=== PATIENT | male | born 1945 | race Caucasian/White ===

== ENCOUNTER → 2017-02-03 | Outpatient (CLI) | payer MEDICARE, BC ==
--- NOTE | 2017-02-03 21:52 | PN ---
A 72-year-old gentleman who has been followed in the sleep center for treatment of obstructive sleep apnea-hypopnea syndrome. Patient continued to use his CPAP equipment every night for the whole night without problems. His likes his mask. He likes his machine. He brought his CPAP unit with him and I checked CPAP usage. He is 100% of the time more than 4 hours. Average usage is 8.18 hours. Leak is only 2%. Apnea-hypopnea index reading is only 2.0. [place] Sleepiness Scale today is 5. MEDICATIONS: 1. Amlodipine. 2. Atorvastatin. 3. Furosemide. 4. Meloxicam. 5. Metformin. 6. Metoprolol. 7. Pioglitazone. 8. A baby aspirin. PHYSICAL EXAMINATION: GENERAL: Patient in no distress. VITAL SIGNS: BP 163/72, HR 52, RR 16. Height 5 feet 9 inches. Weight 283. BMI 41.7. Temp 98.1. Weight is 4 pounds more than during the visit 1 year ago. HEENT: PERRLA, EOMI, Evaluation of the oropharynx showed tongue protrudes midline. Moderate to extremely low position of soft palate. NECK: Supple. No JVD, Thyroid is not palpable. LUNGS: Clear to percussion and to auscultation. Good air exchange. No wheezing or rhonchi. HEART: S1, S2 regular. No murmurs, gallops, or rubs. ABDOMEN: Obese, soft and nontender. Bowel sounds are present. No organomegaly appreciated. BELL CLERK: Awake, alert, and oriented x3. Cranial nerves 2 to 7 intact. There is no fasciculation or atrophy noted. No focal deficits observed. IMPRESSION: 1. Obstructive sleep apnea-hypopnea syndrome on full control with continuous positive airway pressure at 13 cm of water. Patient demonstrated 100% compliance, normal respiration with the machine. 2. Obesity. 3. Hypertension. 4. Diabetes mellitus. 5. Glaucoma. 6. Hyperlipidemia. 7. History of colon polyps. PLAN: 1. Continue treatment with CPAP every night for the whole night. 2. Losing weight. 3. Sleep hygiene with regular time in bed for at least 8 hours. 4. Precautions related to driving. No driving if feeling any sleepiness. 5. Prescription for all necessary CPAP supplies, including mask, tube, filters. Thank you very much for allowing me to participate in the management of your patient. Sincerely, Erick Martini MD, PhD, FAASM Diplomat of [place] Board of Sleep Medicine, Sleep Medicine Board by [place] Board [employer] Medical Specialities [place] Board of Internal Medicine Stock Chaser of [facility] [place]
== END | disposition home or self-care (01) ==
LOC: SLEEP 16:22
PROVIDERS: ATTEND Internal Medicine
DX: G47.33 Obstructive sleep apnea (adult) (pediatric) (principal); I10 Essential (primary) hypertension; E66.9 Obesity, unspecified; E11.9 Type 2 diabetes mellitus without complications; E78.5 Hyperlipidemia, unspecified; Z79.82 Long term (current) use of aspirin; Z79.84 Long term (current) use of oral hypoglycemic drugs; Z68.41 Body mass index [BMI] 40.0-44.9, adult; Z99.89 Dependence on other enabling machines and devices; Z86.010 Personal history of colon polyps; Z79.899 Other long term (current) drug therapy

== ENCOUNTER → 2018-02-02 | Outpatient (CLI) | payer MEDICARE, BC ==
--- NOTE | 2018-02-02 12:22 | PN ---
PROGRESS NOTE DATE OF SERVICE: 02/02/2018 A 73-year-old gentleman who has been followed in the Sleep Center for treatment of obstructive sleep apnea-hypopnea syndrome. Patient continued to use his CPAP equipment every night for the whole night without any problems. No snoring with the machine. He sleeps according to him at least 6 hours. Sleeps well. [place] Sleepiness Scale today is 4. I checked his CPAP unit. Usage is 100% of the time for more than 4 hours. Average usage is 8.36 hours per night. Leak is before up to 4% from the mask. Apnea- hypopnea index is only 0.8 for the last month, which is perfect. MEDICATIONS: Amlodipine, Atorvastatin, furosemide, metformin, metoprolol., baby aspirin, and also hydralazine. PHYSICAL EXAM: Patient in no distress. BP 152/64, HR 50, RR 16, height 5, 9, weight 281, which is 2 pounds less than during previous visit, BMI 41.4, temp 97.0. Oxygen saturation on room air 96%. OROPHARYNX: Low position of soft palate. HEART: S1, S2. Regular, no gallops, no rubs. ABDOMEN: Obese. EXTREMITIES: 1+ bilateral edema. Neck Supple, no JVD. Thyroid is not palpable. LUNGS Clear to percussion and to auscultation. Good air exchange. No wheezing or rhonchi. PHLEBOTOMIST MEDICAL LAB ASSISTANT Awake, alert, and oriented X3. Cranial nerves 2 to 7 intact. There is no fasciculation or atrophy. noted. No focal deficits observed. IMPRESSION: 1. Obstructive sleep apnea-hypopnea syndrome on full control with CPAP. Patient demonstrated 100% compliance with treatment, benefitting from treatment. CPAP pressure is 13 cm of water. 2. Obesity. 3. Hypertension. 4. Diabetes mellitus. 5. Hyperlipidemia. 6. Glaucoma. 7. History of colon polyps. PLAN: 1. Continue treatment with CPAP every night. 2. Losing weight. 3. Sleep hygiene with regular time in bed for at least 8 hours. 4. No driving if feeling sleepiness. 5. Prescription for all necessary CPAP supplies including mask, tube, filters. Thank you very much for allowing me to participate in the management of your patient. Sincerely, Erick Martini MD, PhD, FAASM Diplomat of [place] Board of Medical Specialties [place] Board of Internal Medicine Liner Helper of [facility] [place] JANICE / VINAY: [id number] / ADAM
== END | disposition home or self-care (01) ==
LOC: SLEEP 10:28
PROVIDERS: ATTEND Internal Medicine
DX: G47.33 Obstructive sleep apnea (adult) (pediatric) (principal); H40.9 Unspecified glaucoma; E78.5 Hyperlipidemia, unspecified; I10 Essential (primary) hypertension; E66.9 Obesity, unspecified; E11.9 Type 2 diabetes mellitus without complications; Z79.82 Long term (current) use of aspirin; Z79.84 Long term (current) use of oral hypoglycemic drugs; Z99.89 Dependence on other enabling machines and devices; Z79.899 Other long term (current) drug therapy; Z86.010 Personal history of colon polyps; Z68.41 Body mass index [BMI] 40.0-44.9, adult

== ENCOUNTER → 2019-06-07 | Outpatient (CLI) | payer MEDICARE, BC ==
--- NOTE | 2019-06-07 14:18 | SFUN ---
SLEEP CENTER FOLLOW UP NOTE DATE OF SERVICE: 06/07/2019 A 74-year-old gentleman who has been followed in the Sleep Center for treatment of obstructive sleep apnea-hypopnea syndrome. Patient successfully continued to use his CPAP equipment every night without significant problems related to mask fitting, pressure or humidification, is using full-face mask. [place] Sleepiness Scale today is 4. . I checked CPAP unit. Usage is 30/30 nights more than 4 hours. Leak is only 2% which is observed in the normal range. Apnea-hypopnea index only 1.0/1 hour, which is perfect. Periodic breathing only % which is normal range. Pressure in the machine is 13 cm of water. Patient receiving all his CPAP supplies in time. MEDICATIONS: Troglitazone, metoprolol, amlodipine, atorvastatin, furosemide 40 mg once a day, Hydralazine, Neurontin, baby aspirin, timolol eye drops. PHYSICAL EXAM: Patient in no distress. BP 167/73, HR 42, RR 16, height 5, 8, weight 280, which is 1 pound less than 1 year ago, body mass index 42.5, temperature 97.4, oxygen saturation at room air 97%. OROPHARYNX: Extremely low position of soft palate, Mallampati 4. EXTREMITIES: 1+ ankle edema. Neck Supple, no JVD. Thyroid is not palpable. LUNGS Clear to percussion and to auscultation. Good air exchange. No wheezing or rhonchi. HEART S1, S2 regular. No murmurs, gallops, or rubs. ABDOMEN Soft and nontender. Bowel sounds are present. No organomegaly appreciated. SAW STRAIGHTENER Awake, alert, and oriented X3. Cranial nerves 2 to 7 intact. There is no fasciculation or atrophy. noted. No focal deficits observed. IMPRESSION: 1. Obstructive sleep apnea-hypopnea syndrome. Patient demonstrated great compliance with treatment, benefitting from treatment. 2. Obesity. 3. Hypertension. 4. Diabetes mellitus. 5. Hyperlipidemia. 6. Glaucoma. 7. History of colon polyps. 8. Back problems. PLAN: 1. Patient will continue to use CPAP equipment every night for the whole night. 2. I will maintain all necessary CPAP prescriptions for supplies including full-face mask, tube, filters. 3. Losing weight. I discussed with the patient necessity to do that. 4. No driving if feeling sleepiness. 5. Sleep hygiene with regular time in bed for at least 8 hours. Thank you very much for allowing me to participate in the management of your patient. Sincerely, Erick Martini MD, PhD, FAASM Diplomat of [place] Board of Medical Specialties [place] Board of Internal Medicine Auto Body Mechanic of [facility] [place] MMMOUSTAPHA / VINAY: [id number] /
== END | disposition home or self-care (01) ==
LOC: SLEEP 13:12
PROVIDERS: ATTEND Internal Medicine
DX: G47.33 Obstructive sleep apnea (adult) (pediatric) (principal); E66.9 Obesity, unspecified; I10 Essential (primary) hypertension; E11.9 Type 2 diabetes mellitus without complications; E78.5 Hyperlipidemia, unspecified; H40.9 Unspecified glaucoma; M89.8X8 Other specified disorders of bone, other site; Z68.41 Body mass index [BMI] 40.0-44.9, adult; Z86.010 Personal history of colon polyps; Z99.89 Dependence on other enabling machines and devices; Z79.84 Long term (current) use of oral hypoglycemic drugs; Z79.82 Long term (current) use of aspirin; Z79.899 Other long term (current) drug therapy

== ENCOUNTER → 2021-04-16 | Outpatient (CLI) | payer MEDICARE, BC ==
--- NOTE | 2021-04-17 07:39 | SFUN ---
SLEEP CENTER FOLLOW UP NOTE DATE OF SERVICE: 04/16/2021 INTERVAL HISTORY: This is a 76-year-old gentleman who has been followed in the Sleep Center for treatment of obstructive sleep apnea-hypopnea syndrome. Previously, I saw the patient about 2 years ago. He continued to use his CPAP equipment every night for the whole night. Recently discharged from the hospital where he treated for urinary tract infection. [place] Sleepiness Scale today is 4, which is normal. I checked his CPAP unit, Respironics old unit. Usage 27/30 nights for more than 4 hours. Leak is 15%. Patient using a full-face mask. Apnea-hypopnea index 1.7, which is totally normal. Periodic 0%. CPAP pressure is 13 cm of water. MEDICATIONS: Glimepiride 1 mg once a day, metoprolol 50 mg once a day, amlodipine 10/40 mg once a day, atorvastatin 80 mg once a day, furosemide 40 mg once a day, hydralazine 100 mg twice a day, aspirin 81 mg once a day, Timolol eyedrops at bedtime. PHYSICAL EXAMINATION: GENERAL: Patient in no distress. VITAL SIGNS: BP 144/52, HR 51, RR 15, height 5 feet 9 inches, weight 252.6, temperature 96.8. Oxygen saturation at room air 94%. HEENT: PERRLA, EOMI, evaluation of oropharynx showed tongue protrudes midline. Extremely low position of soft palate, Mallampati 4. NECK: Supple, no JVD. Thyroid is not palpable. LUNGS: Clear to percussion and to auscultation. Good air exchange. No wheezing or rhonchi. HEART: S1, S2 regular. No murmurs, gallops, or rubs. ABDOMEN: Soft and nontender. Bowel sounds are present. No organomegaly appreciated. EXTREMITIES: No clubbing or cyanosis. ROLE PLAYER: Awake, alert, and oriented X3. Cranial nerves 2 to 7 intact. There is no fasciculation or atrophy. noted. No focal deficits observed. IMPRESSION: 1. Obstructive sleep apnea-hypopnea syndrome. Patient demonstrated great compliance with treatment benefitting from treatment. 2. CPAP unit is old, Respironics Dreamwear. 3. Obesity. 4. Hypertension. 5. Diabetes mellitus. 6. Hyperlipidemia. 7. Glaucoma. 8. History of colon polyp. 9. Back problems. PLAN: PLAN 1. Patient will continue to use PAP equipment every night for the whole night. 2. Sleep hygiene with regular time in bed for at least 7-1/2 to 8 hours. 3. Precautions related to driving. No driving if feeling sleepiness. 4. I will maintain all necessary prescription for PAP supplies including mask, tube, filters. 5. Watching weight. 6. Follow-up visit in 30-90 days after the patient receives new CPAP unit. 7. Prescription for all necessary CPAP supplies including full face mask, tubes, filters, prescription to replace CPAP. Thank you very much for allowing me to participate in the management of your patient's. Sincerely, Erick Martini MD, PhD, FAASM Diplomat of [place] Board of Medical Specialties Sleep Medicine Board of [place] Board of Internal Medicine Administrative Operations Coordinator of [facility] [place] MMMOUSTAPHA / VINAY: [phone] /
== END ==
LOC: SLEEP 11:38
PROVIDERS: ATTEND Internal Medicine
DX: G47.33 Obstructive sleep apnea (adult) (pediatric) (principal); E66.9 Obesity, unspecified; I10 Essential (primary) hypertension; E11.9 Type 2 diabetes mellitus without complications; E78.5 Hyperlipidemia, unspecified; H40.9 Unspecified glaucoma; G95.89 Other specified diseases of spinal cord; Z86.010 Personal history of colon polyps; Z99.89 Dependence on other enabling machines and devices

== ENCOUNTER → 2021-08-25 | Outpatient (CLI) | payer MEDICARE, BC ==
--- NOTE | 2021-08-25 15:23 | US ---
EXAMINATION TYPE: US kidneys/renal and bladder DATE OF EXAM: 08/25/2021 COMPARISON: NONE CLINICAL HISTORY: N30.0 Urinary tract infection. EXAM MEASUREMENTS: Right Kidney: 12.9x6.8x5.9 cm Left Kidney: 13.4x4.9x5.8 cm Right Kidney: No hydronephrosis or masses seen Left Kidney: No hydronephrosis or masses seen Bladder: wnl Bilateral Jets seen: No There is no evidence for hydronephrosis at this point in time. No nephrolithiasis is seen. No eugenia s are identified. The urinary bladder is anechoic. Bilateral ureteral jets are seen. IMPRESSION: No distinct abnormality seen.
== END | disposition home or self-care (01) ==
LOC: RADUSWWP 14:41
PROVIDERS: ATTEND Urology
DX: N39.0 Urinary tract infection, site not specified (principal)
CPT/HCPCS: 76770

== ENCOUNTER → 2023-04-21 | Outpatient (CLI) | payer MEDICARE, BC ==
--- NOTE | 2023-04-21 17:20 | P.PN ---
Subjective DATE: 04/21/2023 FOLLOW UP VISIT. Patient with obstructive sleep apnea hypopnea syndrome return to sleep center for follow-up visit. Information from previous visit have been reviewed. This is first visit after patient received new CPAP unit. Patient is using PAP equipment every night for the whole night, getting PAP supplies in time. The patient does not have significant problems with the mask, PAP unit and humidification. [place] sleepiness scale is 5, which is normal I checked information from PAP unit. PAP unit pressure 5-12, average 11.8cm H2O. Usage is 100% for more then 4 hours, average 7 hours per night. Leak is 32.9l//m, which is in acceptable range. Apnea Hypopnea Index is 1.2, which is normal. MEDICATIONS:1. furosemide 40 mg once a day 2. amlodipine/benazepril 10/40 mg once a day 3. metoprolol 50 mg once a day 4. Flomax 0.4 mg once a day 5. atorvastatin 80 mg once a day During physical exam: GENERAL: A pleasant patient without any distress. VITAL SIGNS: BP 153/70 HR 66 RR 12, weight 259.8 temperature 97.4 oxygen saturation at room air 97% . HEENT: PERRLA, EOMI.low position of soft palate, Mallapati 4. NECK: Supple. No JVD. LUNGS: Clear to percussion and to auscultation. Good air exchange. No wheezing or rhonchi. HEART: S1, S2 regular. ABDOMEN: Soft and nontender. Slightly obese EXTREMITIES: No clubbing or cyanosis. ASTRONOMY DEPARTMENT CHAIR: Awake, alert, and oriented x3. No focal deficit. Impressions: 1. Obstructive sleep apnea-hypopnea syndrome. Patient demonstrated great compliance with treatment, benefiting from treatment. 2. Hypertension 3. Diabetes mellitus 4. Obesity 5. Hyperlipidemia 6. Back problems 7. Glaucoma Plan: 1. Continue using PAP equipment every night for the whole night. 2. To change air filter at least 1-2 times per month. 3. PAP unit should stay lower then position of the head. 4. Advised patient to remove all remaining water from humidifier canister daily and make it dry after each usage. Refill canister with fresh distilled water before each usage. 5. Sleep hygiene with regular time in bed for at least 8 hours. 6. Precautions related to driving. No driving if feel any sleepiness. 7. I will maintain prescription for PAP supplies including mask, tube, filters. 8. Follow up visit in 6 months or earlier if patient has any problems. 9. Watching weight. Thank you very much for allowing me to participate in the management of your patient. Erick Martini MD, PhD, FAASM. Diplomat of [place] Board of Sleep Medicine, Sleep Medicine Board by [place] Board of Internal Medicine Buyer Assistant of [facility] [place]
== END ==
LOC: 3 N SLEEP 16:20
PROVIDERS: ATTEND Internal Medicine
DX: G47.33 Obstructive sleep apnea (adult) (pediatric) (principal); I10 Essential (primary) hypertension; E11.9 Type 2 diabetes mellitus without complications; E66.9 Obesity, unspecified; E78.5 Hyperlipidemia, unspecified; H40.9 Unspecified glaucoma; M54.9 Dorsalgia, unspecified; Z99.89 Dependence on other enabling machines and devices; Z79.899 Other long term (current) drug therapy
CPT/HCPCS: 99212

== ENCOUNTER → 2024-06-13 | Outpatient (CLI) | payer MEDICARE, BC ==
[2024-06-13 14:19] VITALS: BP 173/66; PULSE 44; RESP 16; TEMP 97.7
--- NOTE | 2024-06-13 15:16 | P.PROGSL ---
Subjective DATE: 06/13/2024 FOLLOW UP VISIT. Patient with obstructive sleep apnea hypopnea syndrome return to sleep center for follow-up visit. Information from previous visit have been reviewed. Patient is using PAP equipment every night for the whole night, getting PAP supplies in time. The patient does not have significant problems with the mask, PAP unit and humidification. Sometimes patient has drooling and has water in the mask. [place] sleepiness scale is 10, which is borderline. I checked information from PAP unit. PAP unit pressure 5-12, average 11.6 cm H2O. Usage is 100% for more then 4 hours, average 7.25 hours per night. Leak is significantly increased to 57.5 l/m. Apnea Hypopnea Index is 2.3, which is normal. MEDICATIONS have been reviewed, please see below. During physical exam: GENERAL: A pleasant patient without any distress. VITAL SIGNS: Please see below, weight is 239 lbs. HEENT: PERRLA, EOMI.low position of soft palate, Mallapati 4 . NECK: Supple. No JVD. LUNGS: Clear to percussion and to auscultation. Good air exchange. No wheezing or rhonchi. HEART: S1, S2 regular. ABDOMEN: Soft and nontender. Obese EXTREMITIES: No clubbing or cyanosis. SENIOR SOLUTIONS WORKFLOW CONSULTANT: Awake, alert, and oriented x3. No focal deficit. Temperature in humidifier was adjusted down to the level of 3 and I discussed with the patient how to adjust humidity. Impressions: 1. Obstructive sleep apnea-hypopnea syndrome. Patient demonstrated great compliance with treatment, benefiting from treatment. 2. Obesity, BMI 35.8, patient lost 20 pounds since previous visit. 3. Hypertension. 4. Diabetes mellitus. 5. Hyperlipidemia. 6. Glaucoma. 7. Back problems. Plan: 1. Continue using PAP equipment every night for the whole night. 2. Sleep hygiene with regular time in bed for at least 7.5-8 hours 3. PAP unit should stay lower then position of the head. 4. Advised patient to remove all remaining water from humidifier canister daily and make it dry after each usage. Refill canister with fresh distilled water before each usage. 5. Watching weight. 6. Precautions related to driving. No driving if feel any sleepiness. 7. I will maintain prescription for PAP supplies including mask, tube, filters. 8. Follow up visit in 6 months or earlier if patient has any problems. Thank you very much for allowing me to participate in the management of your patient. Erick Martini MD, PhD, FAASM. Diplomat of [place] Board of Sleep Medicine, Sleep Medicine Board by [place] Board of Internal Medicine Deputy Fire Marshal of [facility] [place] cc: Sejal Cervantes MD, Neil MD Jouma, Leydi SAUCEDO Objective - Vital Signs Vital Signs: Vital Signs Temp 97.7 F 06/13/24 14:18 Pulse 44 L 06/13/24 14:18 Resp 16 06/13/24 14:18 BP 173/66 06/13/24 14:18 Pulse Ox 98 06/13/24 14:18 FiO2 Intake & Output 06/12/24 06/13/24 06/13/24 18:59 06:59 18:59 Weight 108.579 kg Home Medications: Home Medications Medication Instructions Recorded Confirmed Type Aspirin 81 mg PO DAILY 06/13/24 06/13/24 History Atorvastatin [Lipitor] 80 mg PO DAILY 06/13/24 06/13/24 History Cholecalciferol [Vitamin D3 (10 25 mcg PO DAILY 06/13/24 06/13/24 History Mcg = 400 Iu)] Ciprofloxacin 500 mg PO BID 06/13/24 06/13/24 History Cyanocobalamin (Vitamin B-12) 1,000 mcg PO DAILY 06/13/24 06/13/24 History [Vitamin B-12] Furosemide [Lasix] 40 mg PO DAILY 06/13/24 06/13/24 History Metoprolol Succinate [Toprol XL] 50 mg PO DAILY 06/13/24 06/13/24 History Tamsulosin [Flomax] 0.4 mg PO DAILY 06/13/24 06/13/24 History Timolol 0.5% Ophth Soln [Timoptic 1 drop BOTH EYES DAILY 06/13/24 06/13/24 History 0.5% Ophth Soln] hydrALAZINE HCL [Apresoline] 100 mg PO TID 06/13/24 06/13/24 History
== END ==
LOC: 3 N SLEEP 13:29
PROVIDERS: ATTEND Internal Medicine
CPT/HCPCS: 99212

== ENCOUNTER → 2025-01-02 | Outpatient (CLI) | payer MEDICARE, BC ==
[2025-01-02 13:59] VITALS: BP 153/66; PULSE 50; RESP 16; TEMP 98
--- NOTE | 2025-01-02 16:32 | P.PROGSL ---
Subjective DATE: 01/02/2025 FOLLOW UP VISIT. Patient with obstructive sleep apnea hypopnea syndrome return to sleep center for follow-up visit. Information from previous visit have been reviewed. Patient is using PAP equipment every night for the whole night, getting PAP supplies in time. The patient does not have significant problems with the mask, PAP unit and humidification. [place] sleepiness scale is 8, which is normal. I checked information from PAP unit. PAP unit pressure 5-12, average 11.8 cm H2O. Usage is 100% for more then 4 hours, average 8.2 hours hours per night. Leak is 58 l/m, which is in high range. Apnea Hypopnea Index is 2.9, which is normal. MEDICATIONS have been reviewed, please see below. During physical exam: GENERAL: A pleasant patient without any distress. VITAL SIGNS: Please see below, weight is 233 lbs. HEENT: PERRLA, EOMI.low position of soft palate, Mallapati 4 . NECK: Supple. No JVD. LUNGS: Clear to percussion and to auscultation. Good air exchange. No wheezing or rhonchi. HEART: S1, S2 regular. ABDOMEN: Soft and nontender.[] EXTREMITIES: No clubbing or cyanosis. OFFICE SPECIALIST: Awake, alert, and oriented x3. No focal deficit. Impressions: 1. Obstructive sleep apnea-hypopnea syndrome. Patient demonstrated great compliance with treatment, benefiting from treatment. 2. Obesity, BMI 34.9, patient lost weight on 6 pounds. 3. Hypertension. 4. Diabetes mellitus. 5. Hyperlipidemia. 6. Back problems. 7. Glaucoma. Plan: 1. Continue using PAP equipment every night for the whole night. 2. Sleep hygiene with regular time in bed for at least 7.5-8 hours 3. PAP unit should stay lower then position of the head. 4. Advised patient to remove all remaining water from humidifier canister daily and make it dry after each usage. Refill canister with fresh distilled water before each usage. 5. Watching and losing weight. 6. Precautions related to driving. No driving if feel any sleepiness. 7. I will maintain prescription for PAP supplies including mask, tube, filters. 8. Follow up visit in 8 months or earlier if patient has any problems. Thank you very much for allowing me to participate in the management of your patient. Erick Martini MD, PhD, FAASM. Diplomat of [place] Board of Sleep Medicine, Sleep Medicine Board by [place] Board of Internal Medicine Drain Technician of [facility] [place] Objective - Vital Signs Vital Signs: Vital Signs Temp 98 F 01/02/25 13:58 Pulse 50 L 01/02/25 13:58 Resp 16 01/02/25 13:58 BP 153/66 01/02/25 13:58 Pulse Ox 98 01/02/25 13:58 FiO2 Intake & Output 01/01/25 01/02/25 01/02/25 18:59 06:59 18:59 Weight 105.687 kg Home Medications: Home Medications Medication Instructions Recorded Confirmed Type Aspirin 81 mg PO DAILY 06/13/24 06/13/24 History Atorvastatin [Lipitor] 80 mg PO DAILY 06/13/24 06/13/24 History Cholecalciferol [Vitamin D3 (10 25 mcg PO DAILY 06/13/24 06/13/24 History Mcg = 400 Iu)] Ciprofloxacin 500 mg PO BID 06/13/24 06/13/24 History Cyanocobalamin (Vitamin B-12) 1,000 mcg PO DAILY 06/13/24 06/13/24 History [Vitamin B-12] Furosemide [Lasix] 40 mg PO DAILY 06/13/24 06/13/24 History Metoprolol Succinate [Toprol XL] 50 mg PO DAILY 06/13/24 06/13/24 History Tamsulosin [Flomax] 0.4 mg PO DAILY 06/13/24 06/13/24 History Timolol 0.5% Ophth Soln [Timoptic 1 drop BOTH EYES DAILY 06/13/24 06/13/24 History 0.5% Ophth Soln] hydrALAZINE HCL [Apresoline] 100 mg PO TID 06/13/24 06/13/24 History
== END ==
LOC: 3 N SLEEP 13:25
PROVIDERS: ATTEND Internal Medicine
DX: G47.33 Obstructive sleep apnea (adult) (pediatric) (principal); I10 Essential (primary) hypertension; E66.01 Morbid (severe) obesity due to excess calories; E11.9 Type 2 diabetes mellitus without complications; E78.5 Hyperlipidemia, unspecified; M54.9 Dorsalgia, unspecified; H40.9 Unspecified glaucoma; Z68.34 Body mass index [BMI] 34.0-34.9, adult
CPT/HCPCS: 99212